=== PATIENT | male | born 1945 | race Caucasian/White ===

== ENCOUNTER 2016-06-09 01:22 | Day surgery (SDC) | payer MEDICARE, OTHER ==
[2016-06-09] VITALS (18 sets, daily range): BP systolic 118–139; BP diastolic 67–87; PULSE 59–69; RESP 12–21; O2SAT 94–99
[~2016-06-09] VITALS: Ht 185.4 cm; Wt 87.2 kg
[~2016-06-09 01:22] MED LIST: ALBU8.5H2 INHALATION; ATOR80TA PO; BECL8.7A6 INHALATION; BUPR150T8 PO; CLOB15OI2 TP; FEXO-106 PO; FLUT15.88 NS; KEN1O TOP; LORA0.5T PO; OLP.1OP5 OD; PANT40TA3 PO; SILD20TA14 PO
[2016-06-09] MEDS ORDERED: 0.9% Sodium Chloride 1,000 ML IV ONE (06:40)
[2016-06-09 11:57] LABS: BASOPHILS % (AUTO) 0.3 % (0-3); EOSINOPHILS % (AUTO) 3.6 % (0-5); MONOCYTES % (AUTO) 7.5 % (4-12); Mean Corpuscular Hemoglobin 33.3 pg (27.0-35.0); Mean Corpuscular Volume 95.7 fL (81-100); NEUTROPHILS % (AUTO) 60.5 % (40-74); Platelet Count 190 bil/L (150-400)
[2016-06-09] MEDS ORDERED: MULT1CAP33 PO (12:14)
[2016-06-09] MEDS ORDERED: ASPI-1148 PO (12:14)
[2016-06-09] MEDS ORDERED: ACET-171 PO (12:14)
--- NOTE | 2016-06-09 12:16 | NUR ---
Admit CY Admitted to [facility] about 1100. VSS. Tele SR. Denies pain. IVs started and labs sent. Procedure and recovery reviewed and verbalizes understanding. See EMR for further info and assessment. 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
[2016-06-09 12:18] LABS: INR 0.92 ratio
[2016-06-09] MEDS ORDERED: Nitroglycerin 50,000 mcg/250 mL D5W Premix IV ONE (13:17)
[2016-06-09] MEDS ORDERED: Heparin 1,000 Unit/mL 10 mL Inj ONE (13:17)
[2016-06-09] MEDS ORDERED: Heparin 5,000 Units/500 mL NS Premix IV ONE (13:17)
[2016-06-09] MEDS ORDERED: Heparin 1,000 Units/500 mL NS Premix IV ONE (13:17)
[2016-06-09] MEDS ORDERED: fentaNYL-PF 50 mCg/mL 2 mL Inj ONE (13:27)
--- NOTE | 2016-06-09 15:24 | CS94 ---
[address] [address] DIAGNOSTIC CARDIAC CATHETERIZATION PATIENT: ABDULLAHI RUST : 1945 MR#: [id number] ADMIT: 06/09/2016 JOB ID: [id number] SERVICE DATE: 06/09/2016 PATIENT PRESENTATION: This is a delightful 70-year-old man with severe mitral regurgitation. This is a preop right and left heart catheterization in anticipation of mitral valve repair. PROCEDURES PERFORMED: 1. Right and left heart catheterization. 2. Selective coronary angiograms. 3. Right common femoral artery vascular access under ultrasound guidance. 4. Hemostasis was obtained via StarClose closure device. METHOD: Following informed consent, an 8-Cambodian sheath was placed in the right common femoral vein. At this point in time, a 6-Cambodian right common femoral sheath was placed in the right common femoral artery. Sheath placement was confirmed via femoral angiogram. Grant-Raya was advanced into the right pulmonary artery. Pulmonary capillary wedge pressure was recorded. Pulmonary artery pressure was recorded. Cardiac output was computed via thermodilution and Genny method. Simultaneous recordings of pulmonary capsular wedge pressure and left ventricular end-diastolic pressure were obtained. Simultaneous recordings were obtained in the right ventricle and left ventricle, as well as in right atrium and pulmonary artery and left ventricle. At this point in time, Grant-Raya was removed. Ventriculogram was performed. JL4 and JR4 catheters were used to engage left main and right coronary artery ostia, respectively. hand injection craniocaudal angulation was used to obtain selective coronary angiograms. All exchanges were performed over a wire. Hemostasis was obtained via StarClose closure device. No complications in the immediate postprocedure period. FINDINGS: Right common femoral artery gives rise to SFA and profunda. The sheath enters the right common femoral artery below the femoral head. It enters at the junction of the profunda and SFA. There is no evidence of contrast extravasation or dissection. HEMODYNAMICS: Cardiac output was 5.9 L by Genny method and 5.7 L via thermodilution method. Cardiac index was 2.8 L/minute per m squared by Genny method and 2.7 L/minute per m squared by thermodilution method. The following pressures were obtained. Right atrial pressure was zero. Right ventricular pressure was 28, with end-diastolic pressure of 3. Pulmonary artery pressure was 28/7 with a mean of 16, and pulmonary capillary wedge pressure was on average 10, with a giant V-wave of 20 mmHg. There was no evidence of mitral stenosis based on simultaneous recording of pulmonary capsular wedge pressure and left ventricular end-diastolic pressure. There was no evidence of aortic stenosis based on pullback. The patient was hypertensive during the case. Aortic pressure was 157/77, and left ventricular end-diastolic pressure was 13. There is no evidence of aortic stenosis based on pullback. CORONARY ANGIOGRAMS: Left main gives rise to LAD and circumflex. No obstructive lesions are seen. There is excellent blow back. There is no dampening on engagement. Left main gives rise to the LAD and the circumflex. LAD does not quite reach the apex. It has two diagonal branches with no obstructive lesions. Circumflex is a dominant vessel with multiple obtuse marginal branches and the PDA. Just immediately prior to the takeoff of the PDA, the circumflex demonstrates mild ectasia but otherwise no obstructive or hemodynamically significant lesions are seen. Right coronary artery is a nondominant vessel. It has no evidence of hemodynamically significant coronary artery disease. There is minimal atherosclerosis of about 20% in the proximal portion of right coronary artery. VENTRICULOGRAM: There is severe mitral regurgitation consistent with mitral valve prolapse. IMPRESSION: 1. Severe mitral regurgitation with mitral valve prolapse. 2. Normal left ventricular systolic function. Ejection fraction is 55% to 60%. 3. No evidence of coronary artery disease. 4. Giant V-waves consistent with severe mitral regurgitation. PLAN: The patient already has an appointment to see for discussion about valve repair. Thank you for the opportunity to evaluate this patient.
--- NOTE | 2016-06-09 19:02 | NUR ---
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 Returned at 1420. Right groin stable and VSS. Tele SR/SB. Stated 12/04 low back pain. Tylenol 975mg po given without relief. Dr. Rolle notified and Morphine 2mg IVP given and effective, 08/04. Also confirmed only 2 hours bedrest. Pt. up to bathroom and ambulated in [place] at 1640. Pt. c/o groin discomfort. Got back to bed and noted new 1/2 dollar size bleeding under dressing. Pressure held and then removed dressing to assess and held pressure again about 20 min. Lump initially felt under skin about 1/2 dollar size but then not present after pressure held. Bruise present. Dr. Rolle notified and assessed pt. Bedrest continued until 1830 and another dose of Morphine ordered for low back pain. Up and ambulated again at 1830 without bleeding. Discharge instructions given, see sheets. Pt. and verbalize understanding. Pt. discharged ambulatory at 1900 with and all belongings in no distress.
[2016-08-25] MEDS ORDERED: METO25TA99 PO (10:43)
[2016-08-25] MEDS ORDERED: SILD20TA14 PO (10:43)
[2016-08-25] MEDS ORDERED: ASPI325T32 PO (10:43)
== END 2016-06-09 23:59 | disposition home or self-care (01) ==
LOC: SOUO 01:22
PROVIDERS: ATTEND Internal Medicine
DX: Z01.810 Encounter for preprocedural cardiovascular examination (principal); I34.1 Nonrheumatic mitral (valve) prolapse; I34.0 Nonrheumatic mitral (valve) insufficiency; E78.2 Mixed hyperlipidemia; J45.909 Unspecified asthma, uncomplicated; Z79.82 Long term (current) use of aspirin
CPT/HCPCS: 36415; 80048; 85025; 85610; 93460; 99152; 99153; C1760; C1769; J1200; J1644; J2060; J2250; J2270; J3010; Q9967